=== PATIENT | male | born 1990 | race Caucasian/White ===

== ENCOUNTER 2016-09-30 12:25 | Emergency (ER) | payer BC ==
[2016-09-30 12:33] VITALS: BP 159/102
--- NOTE | 2016-09-30 12:50 | ER Document Report ---
ED Extremity Problem, Upper - General Chief Complaint: Shoulder Pain Stated Complaint: SHOULDER PAIN Time Seen by Provider: 09/30/16 12:37 Notes: Patient is a 25-year-old male who presents emergency department complaining of left shoulder discomfort. 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 Patient states it is worse in the morning but throughout the day it loosens up. Patient has been using heat which has been helping as well as Aleve. Patient states that is improved over the past couple of weeks and he presents today for evaluation and work note. Otherwise he denies any difficulty with range of motion any trauma or accident. Patient denies any numbness or tingling in the associated extremity patient is an otherwise healthy male TRAVEL OUTSIDE OF THE [place] IN LAST 30 DAYS: No - Related Data Allergies/Adverse Reactions: No Known Allergies Allergy (Unverified 09/30/16 12:32) Past Medical History - Social History Smoking Status: Unknown if Ever Smoked Family History: Reviewed & Not Pertinent Renal/ Medical History: Denies: Hx Peritoneal Dialysis Review of Systems - Review of Systems Constitutional: No symptoms reported Musculoskeletal: See HPI Physical Exam - Vital signs Vitals: Temp Pulse Resp BP Pulse Ox 98.4 F 86 16 159/102 H 99 09/30/16 12:32 09/30/16 12:32 09/30/16 12:32 09/30/16 12:32 09/30/16 12:32 - General General appearance: Appears well, Alert In distress: None - Cardiovascular Pulses: Normal: Radial Normal capillary refill: Yes - Extremities General upper extremity: Normal inspection, Nontender, Normal color, Normal ROM , Normal strength, Normal temperature - Neurological Neuro grossly intact: Yes Cognition: Normal Orientation: AAOx4 Arthur Coma Scale Eye Opening: Spontaneous Arthur Coma Scale Verbal: Oriented [place] Coma Scale Motor: Obeys Commands [place] Coma Scale Total: 15 Speech: Normal Cranial nerves: Normal Cerebellar coordination: Normal Motor strength normal: ALISTAIRE, TIME Additional motor exam normals: 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 No: Weakness Sensory: Normal - Skin Skin Temperature: Warm Skin Moisture: Dry Skin Color: Normal Skin Turgor: Elastic - Robson chicas 90 [id number] over Course - Re-evaluation Re-evalutation: 09/30/16 13:49 No evidence of a septic joint, gout flare, dislocation, or fracture on exam and imaging. Vitals wnl. At this time, I do not see an indication for labs or further imaging. Will discharge with conservative measures, return precautions, and follow-up recommendations. - Vital Signs Vital signs: Temp Pulse Resp BP Pulse Ox 98.4 F 86 16 159/102 H 99 09/30/16 12:32 09/30/16 12:32 09/30/16 12:32 09/30/16 12:32 09/30/16 12:32 Discharge - Discharge Clinical Impression: Shoulder pain Qualifiers: Chronicity: acute Laterality: left Qualified Code(s): M25.512 - Pain in left shoulder Condition: Good Disposition: HOME, SELF-CARE Instructions: Muscle Strain ([facility]), Exercise Program for the Shoulder ([facility]), Warm Packs ([facility]) Prescriptions: Cyclobenzaprine HCl [Flexeril 10 mg Tablet] 10 mg PO TIDP PRN #15 tab PRN Reason: Forms: Special Work Note, Return to Work Referrals: TANIA ORLANDO MD [COMMUNITY BASED STAFF] - Follow up as needed
== END 2016-09-30 13:00 | disposition home or self-care (01) ==
LOC: ER 12:25
DX: M25.512 Pain in left shoulder (principal)
CPT/HCPCS: 99283